=== PATIENT | male | born 1980 | race Caucasian/White ===

== ENCOUNTER 2025-05-19 19:11 | Emergency (ER) | payer SELFPAY ==
[2025-05-19 19:23] VITALS: BP 120/64; PULSE 79; RESP 14; TEMP 36.6; O2SAT 98
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
[2025-05-19] MEDS: CEPHALEXIN 500 MG CAPSULE PO (19:53)
[2025-05-19 20:27] VITALS: BP 120/64; PULSE 79; RESP 14; TEMP 36.6; O2SAT 98
== END 2025-05-19 21:09 | disposition home or self-care (01) ==
LOC: ANHED 20:09
PROVIDERS: Emergency Provider Emergency Medicine
DX: S81.832A Puncture wound without foreign body, left lower leg, initial encounter (principal); X58.XXXA Exposure to other specified factors, initial encounter
CPT/HCPCS: 99283; A9270